=== PATIENT | male | born 1990 | race Two or more races ===

== ENCOUNTER 2020-12-02 18:07 | Emergency (ER) | payer MEDICAID, OTHER ==
[~2020-12-02] VITALS: Ht 167.6 cm; Wt 95.0 kg
[2020-12-02 18:20] VITALS: BP 133/68
== END 2020-12-02 22:34 | disposition left against medical advice (07) ==
LOC: ER 18:07
DX: Z53.21 Procedure and treatment not carried out due to patient leaving prior to being seen by health care provider (principal)